=== PATIENT | male | born 1960 | race Caucasian/White ===

== ENCOUNTER 2016-11-14 07:18 | Inpatient (IN) | payer OTHER ==
[2016-11-07 09:41] VITALS: BMI 31.0
--- NOTE | 2016-11-07 10:16 | PAT Medication Instructions ---
Service Date Nov 07, 2016. Current Home Medication List Acetaminophen/Diphenhydramine (Tylenol Pm), 1 TAB PO HS PRN for PRN Aluminum Hydroxide-Mag Carb (Gaviscon Extra Strength), 2-3 TAB PO PRN Medication Instructions For Your Scheduled Surgery - Hold the following medications the morning of surgery: Aluminum Hydroxide-Mag Carb (Gaviscon Extra Strength), 2-3 TAB PO PRN - Take the following medications as scheduled the night before surgery: Aluminum Hydroxide-Mag Carb (Gaviscon Extra Strength), 2-3 TAB PO PRN Acetaminophen/Diphenhydramine (Tylenol Pm), 1 TAB PO HS PRN for PRN If you have any questions please call us at [phone] or [phone] ( [facility]) or [phone]
--- NOTE | 2016-11-07 10:43 | DIAGNOSTIC IMAGING REPORT ---
CHEST PREADMISSION(PA/LAT) CLINICAL HISTORY: PAT preoperative evaluation COMPARISON STUDY: No previous studies for comparison. FINDINGS: The bones soft tissues and hemidiaphragms are normal. The cardiomediastinal silhouette is normal. The lungs are clear. The pulmonary vasculature is normal. IMPRESSION: Negative chest. Electronically signed by: Eric Christie M.D. 11/07/2016 10:42 AM Dictated Date/Time: 11/07/2016 10:42 AM
[2016-11-07 11:38] LABS: URINE APPEARANCE CLEAR (CLEAR); URINE BILIRUBIN NEG (NEG); URINE COLOR YELLOW; URINE NITRITE NEG (NEG); URINE SPECIFIC GRAVITY 1.008 (1.000-1.030); UROBILINOGEN NEG (NEG)
[2016-11-07 11:42] LABS: BASO % 0.4 %; BASO ABS # 0.02 K/uL (0-0.2); COMPLETE YES; EOS % 1.5 %; HEMATOCRIT 43.4 % (42-52); IG% 0.2 %; LYMPH % 40.4 %; LYMPH ABS # 1.92 K/uL (1.2-3.4); MEAN CELL VOLUME 88.8 fL (80-100); MEAN CORPUSCULAR HEMOGLOBIN 32.7 pg (25-34); MEAN CORPUSCULAR HGB CONC 36.9 g/dl (32-36); MEAN PLATELET VOLUME 10.9 fL (7.4-10.4); MONO % 7.2 %; NEUT % 50.3 %; PLATELET COUNT 165 K/uL (130-400); RED BLOOD COUNT 4.89 M/uL (4.7-6.1); WHITE BLOOD COUNT 4.75 K/uL (4.8-10.8)
[2016-11-07 11:58] LABS: ESTIMATED AVERAGE GLUCOSE 91 mg/dl; HA1C FLAG Normal (Normal)
[2016-11-07 12:01] LABS: BUN/CREATININE RATIO 15.8 (10-20); CALCIUM 8.7 mg/dl (8.5-10.1); CREATININE 0.89 mg/dl (0.60-1.40); POTASSIUM 4.6 mmol/L (3.5-5.1)
[2016-11-07 12:13] LABS: PROTHROMBIN TIME (PATIENT) 11.1 SECONDS (9.0-12.0)
[2016-11-07 12:18] LABS: MANUAL MICROSCOPIC REQUIRED? NO; REVIEW REQ? NO
--- NOTE | 2016-11-13 09:55 | HISTORY & PHYSICAL EXAMINATION ---
DATE OF ADMISSION: 11/14/2016 CHIEF COMPLAINT: Left knee pain. HISTORY OF PRESENT ILLNESS: The patient is a 56-year-old male with known osteoarthritis about his left knee. He has had previous conservative care including NSAIDs. He continues to have pain with activities of daily living including work activities. He now desires to proceed with left total knee arthroplasty. PAST MEDICAL HISTORY: Acid reflux. PAST SURGICAL HISTORY: Left shoulder, left wrist. MEDICATIONS: None. ALLERGIES: No known drug allergies. SOCIAL HISTORY AND REVIEW OF SYSTEMS: Noncontributory. PHYSICAL EXAMINATION: GENERAL: Well-nourished, well-developed male who appears his stated age. HEAD, EYES, EARS, NOSE, AND THROAT: Normocephalic, atraumatic, extraocular movements intact, oropharynx pink and moist. NECK: Supple without adenopathy. LUNGS: Clear to auscultation bilaterally. HEART: Regular rate and rhythm. ABDOMEN: Soft, nontender, nondistended. EXTREMITIES: The upper extremity within normal limits. The left knee has a varus alignment. He complains primarily of medial compartment pain. He has mild crepitus with range of motion. X-RAYS: X-rays were reviewed. He has a varus aligned knee. He has complete loss of the medial joint space. ASSESSMENT: Left knee degenerative joint disease. PLAN: Risks versus benefits were discussed. Consent was obtained. The patient's primary care physician is Dr. Faria. Will proceed with left total knee arthroplasty upon preoperative workup and medical clearance.
[2016-11-14] VITALS (11 sets, daily range): BP systolic 103–135; BP diastolic 64–92; PULSE 65–78; TEMP 36.5–36.9; O2SAT 94–98; Ht 175.3 cm; Wt 96.7 kg
[~2016-11-14] VITALS: Ht 175.3 cm; Wt 96.7 kg
[~2016-11-14 07:18] MED LIST: ALUMCHW6 PO; BUPIVACAINE 0.25% 30 ML VIAL ONE; BUPIVACAINE 0.5 % 5 MG/1 ML PF 10ML VIAL ONE; DIPH-437 PO; FENTANYL CITRATE INJ 50 MCG/1 ML 2 ML VIAL ONE; LACTATED RINGER'S 1000ML 1,000 ML IV SCH; LACTATED RINGER'S 1000ML 500 ML IV ONE; MIDAZOLAM HCL 1 MG/ML 2ML VIAL ONE; NURSING VERBAL MED ORDER STA
[2016-11-14] MEDS ORDERED: ROPIVACAINE 5MG/ML 30 ML 150 MG, BUPIVACAINE/EPINEPHR 0.5% MPF 30 ML, KETOROLAC TROMETH... INFIL SCH ×7 (08:00)
[2016-11-14] MEDS ORDERED: ATROPINE SULFATE 0.1 MG/ML 5ML SYR IV PRN (08:00)
[2016-11-14] MEDS ORDERED: ONDANSETRON INJ 2 MG/ML 2 ML VIAL IV PRN ×2 (08:00→10:45)
[2016-11-14] MEDS ORDERED: EpHEDrine SULFATE INJ 50 MG/ML AMP IV PRN (08:00)
[2016-11-14] MEDS ORDERED: FENTANYL CITRATE INJ 50 MCG/1 ML 2 ML VIAL IV PRN (08:00)
[2016-11-14] MEDS ORDERED: CEFAZOLIN IV 2,000 MG/60 ML D5W IV ONE (08:09)
--- NOTE | 2016-11-14 08:09 | History & Physical Bridge Note ---
H&P Re-Evaluation Bridge Note: I have examined the patient, reviewed the History & Physical and in the interval since the performance of the History & Physical I have noted the following changes of clinical significance: No changes noted
[2016-11-14] MEDS: TRANEXAMIC ACID AMP 1,000 MG in NSS 100ML IV SCH ×2 (08:30→09:45)
[2016-11-14] MEDS ORDERED: ORTHO JOINT ANESTHETIC ONE (08:44)
[2016-11-14] MEDS ORDERED: BACITRACIN 50000 UNIT VIAL ONE (08:44)
[2016-11-14] MEDS ORDERED: POVIDONE-IODINE OP SOLN 30 ML BTL ONE (08:44)
[2016-11-14] MEDS ORDERED: PROPOFOL IV EMULSION 10 MG/ML 20 ML VIAL IV ONE (09:12)
[2016-11-14] MEDS ORDERED: PHENYLEPHRINE 100MCG/ML 5ML SYR ONE (10:05)
--- NOTE | 2016-11-14 10:12 | OPERATIVE REPORT ---
DATE OF OPERATION: 11/14/2016 PREOPERATIVE DIAGNOSIS: Osteoarthritis left knee. POSTOPERATIVE DIAGNOSIS: Osteoarthritis left knee. PROCEDURE: Left total knee arthroplasty. SURGEON: Dr. Mansfield. DYE WINCH OPERATOR: Dillon Hollis PA-C. ANESTHESIA: Spinal COMPLICATIONS: None. OPERATION AND FINDINGS: Following induction of spinal anesthesia, the patient's left leg was prepped and draped in the usual sterile manner. Limb was exsanguinated with an Esmarch bandage and tourniquet was inflated to 350 mmHg. A longitudinal incision was made anteriorly. Subcutaneous tissue was sharply dissected. Electrocautery was used for hemostasis. Prepatellar bursa was incised and median parapatellar incision was performed. Patella was everted and the knee was flexed. Fat pad was removed to aid in visualization and the anterior and posterior cruciate ligaments were removed. The medial face of the tibia was cleared of soft tissue first with a Bovie and a Montes elevator. This tissue was retracted posteriorly using a blunt Hohmann. A Renteria retractor was used to expose the synovium above on the anterior aspect of the femur and this was removed down to bone. The PSI guide was placed on the distal femur and two pins were placed anteriorly and kept in position and two additional pins were placed distally and removed. The distal femoral cutting block was placed in position and the distal femoral cut was used in the +0 setting. Next, the cutting block was removed and the size 4 block was placed in the distal end of the femur. Care was taken to ensure appropriate external rotation and feeler gauge was used to ensure no notching would occur. The femoral block was centered on the distal femur and in the medial and lateral direction and was fixed using two bone screws. The gold pins were then removed. The oscillating saw was used to create the bone cuts and the distal femoral cutting block was removed and the reciprocating saw was used to further trim the femoral cuts as well as a deep in the area for the trochlear groove. Next, posterior condyle remnants were removed. Following this, a meniscal clamp and knife were utilized to remove the anterior portion of both medial and lateral meniscus. The proximal tibia PSI guide was placed into position and the proximal tibial cutting guide was screwed into position. The extra medullary alignment guide was utilized to ensure appropriate alignment. The proximal tibia was cut and the proximal tibial cutting block was removed and this bone fragment was removed. The appropriate guide was used to perform the notch cut on the distal femur and a lamina lithographic etcher and a cochlear knife were utilized to finish both medial and lateral meniscectomies to remove any remnants of the posterior or anterior cruciate ligaments. Following this, the distal femoral component was impacted into position and blunt Wilfredo was used to sublux the tibia anteriorly. The proximal tibia was sized and a size 4 tibial tray was chosen as the size to be used. This was put into position and appropriate external rotation and a double check with extramedullary alignment guide was performed. The canal for the tibial stem was prepared first with a 17 mm drill and then the punch and a mallet and the trial tibial poly was placed. A size 11 was chosen the size to be used. It was brought to extension and the patella was prepared with the patellar reamer. A size 36 component was chosen the size to be used. The trial component was placed and knee was taken through a full range of motion and there was found to be no lateral subluxation of the tibia. No lateral release was required. The trials were all removed. The final components were obtained and assembled. Cement was mixed. The knee was thoroughly irrigated and the ortho mix was injected about the knee joint. The final components were cemented into position. After thoroughly suctioning and drying the bone ends, all excess cement was removed. The knee was held in extension while the cement hardened. The wound was irrigated and closed over a Hemovac drain. #1 Vicryl was used to close the extensor mechanism. Subcutaneous tissues closed using 0 Dexon. Skin was closed with corine. Sterile dressing of Adaptic, 4 x 4's, sterile Webril, and Dejuan was applied. The patient tolerated the procedure well. Due to the complex nature of the procedure, the entire surgery was performed with the operational assistance of Dillon Hollis PA-C. The logistics assistant, under direct supervision, was involved in the actual performance of all aspects of the surgical procedure including hemostasis, tissue retraction and incision, instrument management, patient positioning, and wound closure. I attest to the content of the Intraoperative Record and any orders documented therein. Any exceptio ns are noted below.
[2016-11-14] MEDS ORDERED: ALUMINUM/MAGNESIUM/SIMETH (MAALOX MAX) 30 ML UDC PO PRN (10:45)
[2016-11-14] MEDS ORDERED: ZOLPIDEM TARTRATE 5 MG TAB PO PRN (10:45)
[2016-11-14] MEDS ORDERED: METOCLOPRAMIDE HCL INJ 5 MG/ML 2 ML VIAL IV PRN (10:45)
[2016-11-14] MEDS ORDERED: TAMSULOSIN HCL 0.4 MG CAP PO PRN (10:45)
[2016-11-14] MEDS ORDERED: TRAMADOL HCL 50 MG TAB PO PRN (10:45)
[2016-11-14] MEDS ORDERED: MoRPHine SULFATE 2 MG/ML CARP IV PRN (10:45)
[2016-11-14] MEDS ORDERED: MAGNESIUM HYDROXIDE SUSP 30 ML UDC PO PRN (10:45)
[2016-11-14] MEDS ORDERED: MoRPHine SULFATE 10 MG/ML CARP/VIAL IV PRN (11:15)
[2016-11-14] MEDS ORDERED: MoRPHine SULFATE 4 MG/ML 1 ML CARP\\VIAL IV PRN (11:15)
--- NOTE | 2016-11-14 11:22 | DIAGNOSTIC IMAGING REPORT ---
LEFT KNEE 1 OR 2 VIEWS ROUTINE CLINICAL HISTORY: Left knee osteoarthritis. Arthroplasty. COMPARISON: None FINDINGS: Alignment of the total left knee arthroplasty is anatomic. There is no fracture or unexpected radiopaque foreign body. Drains and skin corine are present. IMPRESSION: Expected findings following total left knee arthroplasty. Electronically signed by: Ge Santana M.D. 11/14/2016 11:21 AM Dictated Date/Time: 11/14/2016 11:20 AM
--- NOTE | 2016-11-14 11:29 | Anesthesiology Progress Note ---
Anesthesia Post Op Note Date & Time Nov 14, 2016 at 11:28 Vital Signs Pain Intensity: 0 Vital Signs Past 12 Hours Date Time Temp Pulse Resp B/P Pulse Ox O2 Delivery O2 Flow Rate FiO2 11/14/16 11:15 65 16 110/68 100 Nasal Cannula 2 11/14/16 11:05 74 16 103/71 100 Nasal Cannula 2 11/14/16 10:55 69 16 110/66 100 Mask 10 11/14/16 10:45 70 16 109/70 100 Mask 10 11/14/16 10:35 36.7 79 16 100/71 96 Mask 10 11/14/16 07:15 36.8 70 16 135/92 98 Room Air 11/14/16 07:15 36.5 70 16 135/92 98 Room Air 11/14/16 07:15 36.8 70 16 135/92 98 Room Air Notes Mental Status: alert / awake / arousable, participated in evaluation Pt Amnestic to Procedure: Yes Nausea / Vomiting: adequately controlled Pain: adequately controlled Airway Patency, RR, SpO2: stable & adequate BP & HR: stable & adequate Hydration State: stable & adequate Neuraxial Anesthesia: was administered, sensory block is resolving Anesthetic Complications: no major complications apparent
[2016-11-14] MEDS: D5W AND 1/2NSS + 20MEQ KCL 1,000 ML IV SCH ×2 (13:19→22:11)
[2016-11-14] MEDS: FERROUS GLUCONATE 324 MG TAB PO SCH ×2 (13:20→18:04)
[2016-11-14] MEDS: CEFAZOLIN IV 2,000 MG in DEXTROSE 5% 50ML 50 ML IV SCH ×2 (15:58→23:48)
[2016-11-14] MEDS: KETOROLAC TROMETHAMINE 30 MG/ML VIAL IV. SCH ×2 (15:58→22:11)
[2016-11-14] MEDS: DOCUSATE SODIUM 100 MG CAP PO SCH (20:49)
[2016-11-14] MEDS: ASPIRIN 81 MG ECTAB PO SCH (20:50)
[2016-11-15] VITALS (7 sets, daily range): BP systolic 114–134; BP diastolic 68–84; PULSE 53–72; TEMP 36.6–37.1; O2SAT 93–97
[2016-11-15] MEDS: KETOROLAC TROMETHAMINE 30 MG/ML VIAL IV. SCH ×2 (03:35→10:17)
[2016-11-15 07:08] LABS: HEMATOCRIT 36.9 % (42-52); MEAN CELL VOLUME 87.2 fL (80-100); MEAN CORPUSCULAR HEMOGLOBIN 32.4 pg (25-34); MEAN CORPUSCULAR HGB CONC 37.1 g/dl (32-36); MEAN PLATELET VOLUME 10.4 fL (7.4-10.4); PLATELET COUNT 137 K/uL (130-400); RED BLOOD COUNT 4.23 M/uL (4.7-6.1); WHITE BLOOD COUNT 10.22 K/uL (4.8-10.8)
--- NOTE | 2016-11-15 07:27 | Orthopedic Progress Note ---
Orthopedic Progress Note Date of Service Nov 15, 2016. Subjective Post OP Day: 1 Reports: feeling well (Pt states left leg still a little numb annd tingly) Objective N/V intact, dressing C/D/I (Hemovac in place), toes mobile Date Time Temp Pulse Resp B/P Pulse Ox O2 Delivery O2 Flow Rate FiO2 11/15/16 03:42 36.6 62 16 118/79 94 Room Air 11/14/16 23:50 Room Air 11/14/16 23:35 36.9 68 16 120/69 94 Room Air 11/14/16 19:38 36.9 72 16 121/77 98 Room Air 11/14/16 19:15 Room Air 11/14/16 18:06 95 Room Air 11/14/16 17:38 78 97 Nasal Cannula 2.0 11/14/16 15:00 72 16 125/76 96 Nasal Cannula 2.0 11/14/16 14:51 Nasal Cannula 2.0 11/14/16 14:06 67 20 114/70 96 Nasal Cannula 2.0 11/14/16 12:50 70 16 117/74 97 Nasal Cannula 2.0 11/14/16 12:35 68 16 103/64 98 2.0 11/14/16 12:20 65 16 117/81 98 Nasal Cannula 2.0 11/14/16 11:48 36.8 67 20 122/68 98 2.0 11/14/16 11:48 98 Nasal Cannula 2.0 11/14/16 11:35 36.5 64 16 104/67 100 Nasal Cannula 2 11/14/16 11:25 36.5 68 16 107/68 100 Nasal Cannula 2 11/14/16 11:15 65 16 110/68 100 Nasal Cannula 2 11/14/16 11:05 74 16 103/71 100 Nasal Cannula 2 11/14/16 10:55 69 16 110/66 100 Mask 10 11/14/16 10:45 70 16 109/70 100 Mask 10 11/14/16 10:35 36.7 79 16 100/71 96 Mask 10 Laboratory Results 24 Hours: Test 11/15/16 06:57 Hematocrit 36.9 % Hemoglobin 13.7 g/dL Additional Notes: Bun/Cr pending Assessment & Plan Assessment: 56 yo male stable POD #1 s/p left TKA Plan: 1. Med management 2. DVT prophylaxis- ASA, TEDs, SCDs 3. P/OT 4. D/C planning- home w/ OPPT
[2016-11-15] MEDS ORDERED: DEXAMETHASONE INJ 10 MG in SYRINGE 0 ML IV ONE (07:30)
--- NOTE | 2016-11-15 07:30 | Discharge Instructions ---
Discharge Instructions Date of Service Nov 15, 2016. Admission Reason for Admission: Left Knee Osteoarthritis Discharge Discharge Diagnosis / Problem: Left knee arthritis Discharge Goals Goal(s): Decrease discomfort, Improve function Activity Recommendations Activity Limitations: as noted below Weightbearing Status: Left weightbearing (as tolerated) . Instructions / Follow-Up Instructions / Follow-Up ACTIVITY RECOMMENDATIONS: SELF CARE INSTRUCTIONS AFTER TOTAL KNEE REPLACEMENT A. You may need to continue a physical therapy program after discharge from the hospital. There are several options available to you. Your doctor will assist you in selecting the best one for you. 1. An out-patient facility 2 to 3 times a week for therapy or home therapy. 2. Continue working on all exercises taught to you in the hospital. Your goals should be to increase bending of your knee to 90 degrees and beyond and to fully straighten your knee. B. You may progress at your own pace from walking with a walker or crutches to a cane; then to no assistive devices. C. Make walking a part of your daily routine. Be up as much as comfortable with rest periods throughout the day. Rest with leg elevation is very important. Use the ice wrap frequently for the first 3-4 weeks. D. There are no restrictions on activities. You may ride in a car, shop, participate in staff registered nurse and all social activities. E. Wear the long elastic stockings (KALINA hose) 20 hours a day for 2 weeks after surgery. They can be removed several times a day for laundering and for a bath. F. You may shower, no tub baths until cleared by your doctor. SPECIAL CARE INSTRUCTIONS: VERY IMPORTANT TO READ AND REVIEW A. There are a few signs you need to watch for after you are home. Call [facility] if you notice any of the followin. Increased severe knee pain. Some pain is expected especially when you exercise. 2. Increased swelling in your leg or knee; pain or swelling of the calf muscle in either lower leg. 3. Any fluid drainage from the incision. 4. Shortness of breath or chest pain. B. Please call [facility] at if you have any concerns or questions about your operation or recovery. The doctor or his nurse will return your call promptly. C. You must take antibiotics before dental work, bladder, bowel or other surgery. Your doctor will provide you with a permanent care to carry describing this precaution. IMPORTANT: * REMEMBER TO TAKE ASPIRIN, 81 MG, TWICE DAILY FOR 4 WEEKS UNLESS OTHERWISE DIRECTED. THIS IS YOUR BLOOD THINNER. * HIGH RISK PATIENTS MAY BE PRESCRIBED A STRONGER BLOOD THINNER. THIS WILL BE PROVIDED AT DISCHARGE. * CALL IF INCREASED PAIN, REDNESS, DRAINAGE OR FEVER GREATER THAT 101. * WEAR KALINA HOSE 20 HOURS PER DAY FOR 2 WEEKS. Silverlon- This is a large adhesive bandage that contains silver ions. This helps your incision heal by fighting off bacteria and protecting it from the outside environment. You are permitted to shower with this dressing. This will remain on your incision for 7 days and then should be removed. Some visible blood or drainage through the dressing window is normal. If there is significant drainage or leaking noted before the 7 days notify your doctor's office immediately. Once removed, keep incision clean and dry. If there is any drainage or redness noted, please call your surgeon. FOLLOW UP VISIT: If appointment is not already scheduled: Please call [facility] to make a follow-up appointment for 2 weeks after your surgery at . Current Hospital Diet Patient's current hospital diet: Regular Diet Discharge Diet Recommended Diet: Regular Diet Procedures Procedures Performed: Left Total Knee Arthroplasty, Cemented Pending Studies Studies pending at discharge: no Laboratory Results Hemoglobin A1c Test 11/07/16 10:22 Range/Units Estimated Average Glucose 91 mg/dl Hemoglobin A1c 4.8 4.5-5.6 % Medical Emergencies . Who to Call and When: Medical Emergencies: If at any time you feel your situation is an emergency, please call 911 immediately. . Non-Emergent Contact Non-Emergency issues call your: Surgeon Call Non-Emergent contact if: temperature is above 101.5, your pain is not controlled, wound has increased drainage, wound has increased redness . "Provider Documentation" section prepared by Dillon Hollis PA-C. VTE Core Measure Inpt VTE Proph given/why not?: Other Anticoagulation (ASA 81mg bid), T.E.D. Stockings, SCD's [place] Drug Monitoring Program Search Results: patient reviewed within database, no issues identified
[2016-11-15 07:32] LABS: BUN/CREATININE RATIO 13.7 (10-20); CALCIUM 8.1 mg/dl (8.5-10.1); CREATININE 0.9 mg/dl (0.60-1.40); POTASSIUM 4.3 mmol/L (3.5-5.1)
[2016-11-15] MEDS: MULTIVITAMIN TAB PO SCH (08:35)
[2016-11-15] MEDS: ASPIRIN 81 MG ECTAB PO SCH ×2 (08:35→20:30)
[2016-11-15] MEDS: FERROUS GLUCONATE 324 MG TAB PO SCH ×3 (08:35→17:45)
[2016-11-15] MEDS: PANTOprazole SOD 40 MG TAB PO SCH (08:35)
[2016-11-15] MEDS: DOCUSATE SODIUM 100 MG CAP PO SCH ×2 (08:35→20:30)
[2016-11-15] MEDS: HYDROCODONE/ACETAMOPHEN 5/325MG TAB PO PRN ×4 (08:37→22:04)
[2016-11-15] MEDS: CeleBREX 200 MG CAP PO SCH (20:31)
[2016-11-16 06:49] VITALS: BP 118/76; PULSE 64; TEMP 36.9; O2SAT 97
[2016-11-16] MEDS: HYDROCODONE/ACETAMOPHEN 5/325MG TAB PO PRN ×2 (07:37→12:06)
[2016-11-16] MEDS: FERROUS GLUCONATE 324 MG TAB PO SCH (07:37)
[2016-11-16] MEDS: CeleBREX 200 MG CAP PO SCH (07:38)
[2016-11-16] MEDS: ASPIRIN 81 MG ECTAB PO SCH (07:38)
[2016-11-16] MEDS: MULTIVITAMIN TAB PO SCH (07:39)
[2016-11-16] MEDS: PANTOprazole SOD 40 MG TAB PO SCH (07:40)
[2016-11-16] MEDS: DOCUSATE SODIUM 100 MG CAP PO SCH (07:40)
--- NOTE | 2016-11-16 08:12 | Orthopedic Progress Note ---
Orthopedic Progress Note Date of Service Nov 16, 2016. Subjective Post OP Day: 2 Reports: feeling well, pain controlled w PO medications, Denies: SOB, calf pain , chest pain, complaints, light headedness, nausea / vomiting Additional Notes: Patient feels well and his numbness has gone down but is still there. Objective calves soft nontender, dressing C/D/I, A&O x3, toes mobile Date Time Temp Pulse Resp B/P Pulse Ox O2 Delivery O2 Flow Rate FiO2 11/16/16 06:49 36.9 64 16 118/76 97 Room Air 11/15/16 22:54 37.1 72 16 127/72 97 Room Air 11/15/16 19:30 Room Air 11/15/16 15:57 Room Air 11/15/16 14:52 36.9 70 18 114/70 93 Room Air 11/15/16 11:40 36.8 72 16 114/68 93 Room Air 11/15/16 10:45 53 96 11/15/16 08:22 94 Room Air 11/15/16 08:21 Room Air Assessment & Plan Assessment: 56 yo male stable POD #2 s/p left TKA Plan: 1. Med management 2. DVT prophylaxis- ASA, TEDs, SCDs 3. P/OT 4. D/C planning- home w/ OPPT Discharge Planning Discharge Planning: home with oppt DVT Prophylaxis: ASA Therapy: Physical Therapy
[2016-11-16 09:15] VITALS: BP 120/79; PULSE 73; O2SAT 97
[2016-11-16] MEDS ORDERED: HYDR-5688 PO (11:11)
[2016-11-16] MEDS ORDERED: ASPEC81 PO (11:11)
[2016-11-16] MEDS ORDERED: ACET-1138 PO (11:11)
[2016-11-16] MEDS ORDERED: CLB200 PO (11:11)
[2016-11-16] MEDS ORDERED: ONDA8TAB6 PO (11:11)
[2016-11-16 11:37] VITALS: BP 118/76; PULSE 64; TEMP 36.9; O2SAT 97
--- NOTE | 2016-11-22 13:47 | DISCHARGE SUMMARY ---
CHIEF COMPLAINT: Left knee pain. Please see complete history and physical examination. HOSPITAL COURSE: The patient underwent left total knee arthroplasty without complication. He tolerated the procedure well and was discharged to recovery room in stable condition. His postoperative course was relatively uneventful. His postoperative pain was reasonably well controlled with a combination of spinal anesthesia, adductor canal block, intraoperative joint injection, IV, and oral pain medications. He was started on aspirin for DVT prophylaxis. He also utilized KALINA stockings and SCDs for additional prophylaxis. His H\T\H was stable and did not require transfusion. His surgical drain was discontinued by postoperative day 2, surgical dressing will remain in place for approximately 7 days postoperative. He tolerated postop physical therapy reasonably well as he was bending his knee and ambulating appropriately. He was discharged home on postop day 2. He will continue his physical therapy as an outpatient. He will continue his aspirin for DVT prophylaxis and follow up in our office in approximately 10-14 days for his initial postop evaluation.
== END 2016-11-16 13:15 | disposition home or self-care (01) | DRG 470 ==
LOC: ENRESERVDT → ENRESERVTM → C.ACU 07:18 → C.3E 12:13
PROC: 0SRD0J9 Replacement of Left Knee Joint with Synthetic Substitute, Cemented, Open Approach (ICD-10-PCS; principal; 2016-11-14 09:15)
DX: M17.12 Unilateral primary osteoarthritis, left knee (principal)